=== PATIENT | female | born 1995 | race Caucasian/White ===

== ENCOUNTER 2017-06-27 22:27 | Emergency (ER) | payer SELFPAY ==
[2017-06-27 23:03] VITALS: TEMP 98.7
--- NOTE | 2017-06-27 23:52 | ED.PDOC ---
History of Present Illness - General Chief Complaint: GI Problem Stated Complaint: abd pain constipation Time Seen by Provider: 06/27/17 22:45 Source: patient Exam Limitations: no limitations - History of Present Illness Initial Comments: Patient presents with abdominal pain. She says it is "all over". She is unable to describe the quality. There are no exacerbating nor alleviating factors. She says she had one small bowel movement today and was worried that she hadn't had a previous one since last night. She says she has 4-5 small bowel movements per day and that is normal for her. Her BM today was "normal" for her and was non-bloody and not black. She has had multiple previous episodes and has been to several E.R.s. and complains that they "all tell me I'm not then send me home." She said that she is not leaving until we give her a diagnosis. I told her that we needed to do some labs first and then start an IV for possible radiology. She said "I hate IVs" and refused it. Then she asked "how long am I going to be here?" She says she has had some nausea but no vomiting. She had a full meal of spaghetti 2 hours ago. No other complaints. She had a hernia repair when she was 4 years old but denies other previous. Timing/Duration: changing over time, intermittent Severity: mild Improving Factors: nothing Worsening Factors: nothing Associated Symptoms: denies symptoms Allergies/Adverse Reactions: Allergies NO KNOWN ALLERGY Allergy (Verified 06/28/17 00:05) Review of Systems - Review of Systems Constitutional: States: no symptoms reported EENTM: States: no symptoms reported Respiratory: States: no symptoms reported Cardiology: States: no symptoms reported Gastrointestinal/Abdominal: States: see HPI Genitourinary: States: no symptoms reported Musculoskeletal: States: no symptoms reported Skin: States: no symptoms reported Neurological: States: no symptoms reported Endocrine: States: no symptoms reported Hematologic/Lymphatic: States: no symptoms reported Past Medical History (General) - Patient Medical History Hx Asthma: No Hx Cardiac Disorders: Yes - cardiomegaly Hx Congestive Heart Failure: No Hx Diabetes: No Surgical History: other - Vaccination History Hx Tetanus, Diphtheria Vaccination: Yes Hx Influenza Vaccination: Yes Hx Pneumococcal Vaccination: No - Social History Hx Tobacco Use: Yes Hx Alcohol Use: No - Female History Patient is a Female of Child Bearing Age (10 -59 yrs old): No Patient : No Family Medical History - Family History Mother Hx Family Cancer: Yes - Cervical, Breast Physical Exam - Physical Exam General Appearance: Alert Eye Exam: bilateral normal Ears, Nose, Throat: normal ENT inspection Neck: non-tender, full range of motion, supple Respiratory: chest non-tender, lungs clear, normal breath sounds Cardiovascular/Chest: normal peripheral pulses, regular rate, rhythm, no edema Gastrointestinal/Abdominal: normal bowel sounds, non tender, soft Back Exam: normal inspection, no CVA tenderness Extremity: normal range of motion, non-tender, normal inspection 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 Risks and benefits of a CT scan of the abdomen and pelvis were discussed with the patient who voiced understanding. She elected to receive a CT scan but then said she was tired and preferred to go home. I asked her if she would like something for constipation and she said that she was having plenty of bowel movements. She decided not to do the CT scan but rather follow up with Dr. Goetz as an outpatient. His number was provided to her. 06/28/17 00:58 Laboratory Tests 06/27/17 06/27/17 06/28/17 23:32 23:32 00:10 WBC RBC Hgb Hct MCV MCH MCHC RDW Plt Count MPV Absolute Neuts (auto) Absolute Lymphs (auto) Absolute Monos (auto) Absolute Eos (auto) Absolute Basos (auto) Neutrophils % Lymphocytes % Monocytes % Eosinophils % Basophils % Sodium 138 Potassium 4.2 Chloride 103 Carbon Dioxide 27 Anion Gap 12.2 BUN 9 Creatinine 0.59 L BUN/Creatinine Ratio 15.3 Random Glucose 96 Serum Osmolality 274.2 L Calcium 9.8 Total Bilirubin 0.4 AST 21 ALT 23 Alkaline Phosphatase 60 L Serum Total Protein 8.8 H Albumin 4.2 Globulin 4.6 H Albumin/Globulin Ratio 0.9 L Lipase Urine Color Yellow Urine Appearance Clear Urine pH 5.5 Ur Specific [place] 1.025 Urine Protein Negative Urine Glucose (UA) Negative Urine Ketones Negative Urine Blood Negative Urine Nitrite Negative Urine Bilirubin Negative Urine Urobilinogen 0.2 Ur Leukocyte Esterase Negative Urine RBC 0-1 Urine WBC 0-1 Ur Epithelial Cells 3-5 Amorphous Sediment Trace Urine Bacteria Rare Urine HCG, Qual Negative 06/28/17 06/28/17 00:10 00:10 WBC 10.9 H RBC 5.24 Hgb 14.0 Hct 41.9 MCV 80.0 L MCH 26.8 L MCHC 33.4 RDW 13.4 Plt Count 359 MPV 8.5 Absolute Neuts (auto) 6.50 Absolute Lymphs (auto) 2.90 Absolute Monos (auto) 0.90 H Absolute Eos (auto) 0.50 H Absolute Basos (auto) 0.10 Neutrophils % 60.2 Lymphocytes % 27.0 Monocytes % 8.0 Eosinophils % 4.2 Basophils % 0.6 Sodium Potassium Chloride Carbon Dioxide Anion Gap BUN Creatinine BUN/Creatinine Ratio Random Glucose Serum Osmolality Calcium Total Bilirubin AST ALT Alkaline Phosphatase Serum Total Protein Albumin Globulin Albumin/Globulin Ratio Lipase 32 Urine Color Urine Appearance Urine pH Ur Specific [place] Urine Protein Urine Glucose (UA) Urine Ketones Urine Blood Urine Nitrite Urine Bilirubin Urine Urobilinogen Ur Leukocyte Esterase Urine RBC Urine WBC Ur Epithelial Cells Amorphous Sediment Urine Bacteria Urine HCG, Qual Departure - Departure Clinical Impression: Abdominal pain Disposition: Discharge to Home or Self Care Condition: Good Departure Forms: ED Discharge - Pt. Copy, Patient Portal Self Enrollment Diet: other - as recommended by Dr. Goetz Activity: increase activity as tolerated Additional Instructions: Follow up with Dr. Goetz regarding your health concerns. Return to the E.R. for increasing pain or fever.
[2017-06-28 01:07] VITALS: BP 130/88; O2SAT 98
== END 2017-06-28 01:07 | disposition home or self-care (01) ==
LOC: ER 22:27
DX: R10.9 Unspecified abdominal pain (principal); I51.7 Cardiomegaly; Z87.891 Personal history of nicotine dependence

== ENCOUNTER 2017-07-03 22:57 | Emergency (ER) | payer SELFPAY ==
[2017-07-03 23:11] VITALS: BP 161/100; TEMP 100.4; O2SAT 99
--- NOTE | 2017-07-03 23:14 | ED.PDOC ---
History of Present Illness - General Chief Complaint: Neuro Symptoms/Deficits Stated Complaint: seizures Time Seen by Provider: 07/03/17 23:02 Source: patient Exam Limitations: no limitations - History of Present Illness Initial Comments: the patient is a 21-year-old female presenting to emergency room secondary to having had a seizure. She does have a history of epilepsy and has been off medications for the last 1-2 years. She apparently has seizures several times per month. She had a seizure that was witnessed by her family today and they called EMS. She was brought here. Additionally she is complaining of some right upper anterior chest wall pain with movement. There is no deformity or bruising. She is uncertain why it is sore. No shortness of breath. When EMS arrived she was still in a postictal state however by the time she arrived here she is alert and oriented and refusing medical care. he patient signed out AGAINST MEDICAL ADVICE soon after arrival Timing/Duration: unsure Severity: moderate Improving Factors: nothing Worsening Factors: nothing Associated Symptoms: chest pain Allergies/Adverse Reactions: Allergies NO KNOWN ALLERGY Allergy (Verified 06/28/17 00:05) Review of Systems - Review of Systems Constitutional: States: malaise EENTM: States: no symptoms reported Respiratory: States: no symptoms reported Cardiology: States: chest pain Gastrointestinal/Abdominal: States: no symptoms reported Genitourinary: States: no symptoms reported Musculoskeletal: States: other - right upper anterior chest wall painwith movement Skin: States: no symptoms reported Neurological: States: other - pilepsy Past Medical History (General) - Patient Medical History Hx Asthma: No Hx Cardiac Disorders: Yes - cardiomegaly Hx Congestive Heart Failure: No Hx Diabetes: No Surgical History: other - Vaccination History Hx Tetanus, Diphtheria Vaccination: Yes Hx Influenza Vaccination: Yes Hx Pneumococcal Vaccination: No - Social History Hx Tobacco Use: Yes Hx Alcohol Use: No - Female History Patient : No Family Medical History - Family History Mother Hx Family Cancer: Yes - Cervical, Breast Physical Exam - Physical Exam General Appearance: Alert, Anxious Eye Exam: bilateral normal Ears, Nose, Throat: hearing grossly normal, normal ENT inspection Neck: full range of motion, supple Respiratory: lungs clear, normal breath sounds, no respiratory distress, no accessory muscle use Cardiovascular/Chest: normal peripheral pulses, regular rate, rhythm, no edema Peripheral Pulses: radial,right: 2+, radial,left: 2+ Gastrointestinal/Abdominal: non tender - obese, soft Rectal Exam: deferred Back Exam: normal inspection, no CVA tenderness Extremity: non-tender, normal inspection, no pedal edema, normal capillary refill 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 The patient left AGAINST MEDICAL ADVICE very soon after arrival. The patient should follow-up with her primary care doctor to get her epilepsy under control. Departure - Departure Clinical Impression: Epilepsy Qualifiers: Epilepsy type: unspecified Intractability: not intractable Status epilepticus: without status epilepticus Qualified Code(s): G40.909 - Epilepsy, unspecified, not intractable, without status epilepticus Disposition: Left Against Medical Advice Condition: Poor Departure Forms: Patient Portal Self Enrollment, ED Discharge - Pt. Copy Diet: regular diet Activity: increase activity as tolerated
== END 2017-07-03 23:20 | disposition left against medical advice (07) ==
LOC: ER 22:57
DX: G40.909 Epilepsy, unspecified, not intractable, without status epilepticus (principal); I51.7 Cardiomegaly; Z87.891 Personal history of nicotine dependence